=== PATIENT | female | born 1990 | race Caucasian/White ===

== ENCOUNTER 2017-04-18 11:18 | Emergency (ER) | payer MEDICAID | END 2017-04-18 12:51 | disposition home or self-care (01) | LOC: D.ER 11:18 | DX: J01.90 Acute sinusitis, unspecified (principal) ==

== ENCOUNTER 2017-08-15 21:52 | Emergency (ER) | payer MEDICAID ==
[~2017-08-15] VITALS: Ht 162.6 cm; Wt 159.1 kg
[2017-08-15 22:16] VITALS: Ht 162.6 cm; Wt 159.1 kg
[2017-08-15] MEDS ORDERED: ZOLOFT100 MG PO (22:18)
[2017-08-15] MEDS ORDERED: ROBAXIN-750750 MG PO (23:22)
[2017-08-15] MEDS ORDERED: VOLTAREN75 MG PO (23:22)
[2017-08-16 01:24] VITALS: BP 120/98
== END 2017-08-15 23:56 | disposition home or self-care (01) ==
LOC: D.ER 21:52
DX: S49.92XA Unspecified injury of left shoulder and upper arm, initial encounter (principal); W22.8XXA Striking against or struck by other objects, initial encounter; Y93.89 Activity, other specified; Y92.019 Unspecified place in single-family (private) house as the place of occurrence of the external cause